=== PATIENT | male | born 1975 | race Caucasian/White ===

== ENCOUNTER 2022-06-13 17:10 | Emergency (ER) | payer BC, OTHER ==
[~2022-06-13] VITALS: Ht 188 cm; Wt 97.5 kg
[~2022-06-13 17:10] MED LIST: CYCLOBENZAPRINE5 MG PO; OXYCODONE-ACET1 EAC1 PO; PROMETHAZINE HC25 M1 PO; REGLAN10 MG PO
--- OUTSIDE RECORDS SUMMARY | 2022-06-13 17:13 | XMS ---
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 [place]na VISIT COUNT (12 MO.) 1 GINO [place] TOTAL 1 NOTE: Visits indicate total known visits. ED/UCC VISIT TRACKING (12 MO.) 06/13/2022 17:11 GINO [facility] OR TYPE: Emergency COMPLAINT: - HEADACHE INPATIENT VISIT TRACKING (12 MO.) No inpatient visits to display in this time frame [email or web address]
== END 2022-06-14 00:32 | disposition home or self-care (01) ==
LOC: ED 17:10
DX: G43.909 Migraine, unspecified, not intractable, without status migrainosus (principal); Z88.5 Allergy status to narcotic agent; Z79.899 Other long term (current) drug therapy
CPT/HCPCS: 96374; 96375; 99283-25; J0780; J1170; J1200; J1885; J7121

== ENCOUNTER 2024-03-08 09:06 | Emergency (ER) | payer BC, OTHER ==
[~2024-03-08] VITALS: Ht 188 cm; Wt 106.2 kg
[2024-03-08] MEDS ORDERED: BUPRENORPHINE HC2 MG SL (09:22)
[2024-03-08] MEDS ORDERED: ALPRAZOLAM0.5 MG PO (09:22)
[2024-03-08] MEDS ORDERED: DULOXETINE HCL60 MG PO (09:22)
[2024-03-08] MEDS ORDERED: PRAMIPEXOLE D0.75 MG PO (09:23)
[2024-03-08] MEDS ORDERED: SUMAtriptan succinate 6 MG/0.5 ML VIAL SUB-Q ONE (09:30)
[2024-03-08] MEDS ORDERED: ondansetron HCL 4 MG/2 ML VIAL IV ONE (09:30)
[2024-03-08] MEDS ORDERED: SODIUM CHLORIDE 0.9% 1,000 ML IV ONE (09:30)
[2024-03-08] MEDS ORDERED: diphenhydrAMINE HCL 50 MG/ML VIAL IV ONE ×2 (09:30→13:00)
[2024-03-08] MEDS ORDERED: KETOROLAC TROMETHAMINE 30 MG/ML VIAL IV ONE (09:30)
[2024-03-08] MEDS ORDERED: LORazepam 2 MG/ML VIAL IV ONE (11:00)
[2024-03-08] MEDS ORDERED: HYDROmorphone HCL 1 MG/ML SYR IV ONE ×2 (13:00→14:45)
[2024-03-08 15:24] VITALS: BP 134/88
== END 2024-03-08 15:24 | disposition home or self-care (01) ==
LOC: ED 09:06
DX: G43.909 Migraine, unspecified, not intractable, without status migrainosus (principal); Z79.899 Other long term (current) drug therapy; Z88.5 Allergy status to narcotic agent
CPT/HCPCS: 96374; 96375; 96376; 99283-25; J1170; J1200; J1885; J2060; J2405; J3030; J7030

== ENCOUNTER 2024-06-18 11:57 | Day surgery (SDC) | payer BC, OTHER ==
[~2024-06-18 11:57] MED LIST changes: +ALPRAZOLAM0.5 MG PO; +BUPRENORPHINE HC2 MG SL; +CEFAZOLIN SODIUM 2 GM/20 ML SYR IV SCH; +CLARITIN10 MG PO; +CYMBALTA30 MG PO; +DULOXETINE HCL60 MG PO; +IBLOOD GLUCOSE TEST STRIP 1 EA TEST VI PRN; +LACTATED RINGER'S 1,000 ML IV SCH; +LIDOCAINE HCL 1% 5 ML SDV INJ ONE; +MECLIZINE HCL25 MG PO; +MIDAZOLAM HCL 5 MG/5 ML VIAL IV PRN; +PRAMIPEXOLE D0.75 MG PO; +SUDAFED 12 HOU120 MG PO; +SYNTHROID88 MCG PO; +ZYRTEC10 M3 PO; +fentaNYL citrate 100 MCG/2 ML VIAL IV PRN
[2024-06-18 12:36] VITALS: BP 150/94
[2024-06-18] MEDS ORDERED: NIGHTTIME COLD PO (12:53)
[2024-06-18] MEDS ORDERED: EXCEDRIN MIGRA1 EAC2 PO (12:54)
[2024-06-18 13:20] VITALS: BP 129/90
[2024-06-18] MEDS ORDERED: MIDAZOLAM HCL 5 MG/5 ML VIAL ONE (14:10)
[2024-06-18] MEDS ORDERED: fentaNYL citrate 100 MCG/2 ML VIAL ONE (14:10)
[2024-06-18] MEDS ORDERED: MIDAZOLAM HCL 2 MG/2 ML VIAL ONE ×2 (15:00→15:10)
--- NOTE | 2024-06-18 15:40 | NUR ---
06/18/24 1540 Ebenezer Stewart 1534: PT ARRIVED TO PACU VIA STRETCHER. PT ALERT AND ORIENTED. PT SITTING UP IN BED TALKING. PT ON RA AT THIS TIME.
[2024-06-18 15:47] VITALS: BP 132/98
--- NOTE | 2024-06-20 12:25 | OR ---
[facility] [address], [place] [address] Signed DATE OF OPERATION: 06/18/2024 SURGEON: Francisco Ervin MD PREOPERATIVE DIAGNOSIS: Colon screening. POSTOPERATIVE DIAGNOSIS: Polyps x1, sigmoid. PROCEDURE: Total colonoscopy to cecum with cold snare polypectomy x1. ANESTHESIA: Intravenous sedation; fentanyl 200 mcg and Versed 14 mg. INDICATIONS: A 49-year-old white man is a patient of AKBAR Espinoza. He has been referred for screening colonoscopy. He currently has no symptoms of bleeding diarrhea or constipation. He has no family history of colon cancer. He is admitted at this time to undergo colonoscopy and understands the risk of bleeding, infection, and perforation. FINDINGS: The prep was good. Complete colonoscopy was undertaken to the cecum with full intubation of the cecum. He had a few scattered diverticula, but very few. He had one small polyp of the sigmoid, which was excised with cold snare technique. There were no other findings of note. PROCEDURE IN DETAIL: The patient was brought to the endoscopy suite and placed in lateral decubitus position, given intravenous sedation to the point of slurred speech and nystagmus. Digital rectal examination was normal. An Olympus video colonoscope was passed in the rectum and manipulated throughout the colon showing a few scattered diverticula. The scope was ultimately advanced to the cecum. The ileocecal valve and appendiceal orifice were normal. Additional sedation was given as needed. The scope was withdrawn from that point and examination throughout showed no sign of abnormality until the sigmoid where there was a flat small polyp about less than 1 cm in size. This was excised with cold snare technique. Further withdrawal of scope showed no other findings of concern. The scope was removed. The patient was Electronically Signed By: FRANCISCO ERVIN MD 06/20/24 1225 PATIENT NAME: DEISY PRINGLE OPERATIVE REPORT DATE OF : 79 REPORT #: [id number] PHYSICIAN: FRANCISCO ERVIN MD PCP: MAAME APPLE PA-C REPORT IS CONFIDENTIAL AND NOT TO BE RELEASED WITHOUT AUTHORIZATION [facility] [address], [place] [address] Signed taken to the recovery room in good condition. CONCLUDING DIAGNOSIS: Polyps x1 and minimal diverticula. PLAN: Recommend repeat colonoscopy in 7-10 years based on current recommendations, sooner if symptoms should occur. We would recommend high-fiber diet as well. He will return to the ongoing care of AKBAR Espinoza. MD CYNTHIA Borges/NICHO /[id number] cc: Maame Apple PA-C Copies: MAAME APPLE PA-C ~ Electronically Signed By: FRANCISCO ERVIN MD 06/20/24 1225 PATIENT NAME: DEISY PRINGLE OPERATIVE REPORT DATE OF : 79 REPORT #: [id number] PHYSICIAN: FRANCISCO ERVIN MD PCP: MAAME APPLE PA-C REPORT IS CONFIDENTIAL AND NOT TO BE RELEASED WITHOUT AUTHORIZATION
--- NOTE | 2024-06-23 14:14 | PATH ---
[facility] [address] [facility] [place], [place] [address] Signed SPECIMEN(S): A RECTOSIGMOID POLYP SPECIMEN SOURCE: A. RECTOSIGMOID POLYP CLINICAL HISTORY: Initial screening colonoscopy FINAL PATHOLOGIC DIAGNOSIS: Rectosigmoid colon polyp: - Sessile serrated adenoma. - No dysplasia or malignancy identified. SHAHZAD MICROSCOPIC EXAMINATION: Histologic sections of all submitted blocks are examined by light microscopy. These findings, together with the gross examination, support the pathologic diagnosis. GROSS DESCRIPTION: The specimen, labeled and designated "Hollis, rectosigmoid polyp," is received in formalin and consists of one jorgensen soft tissue fragment, 0.3 cm. Entirely submitted in (A1). VB (under the direct supervision of a pathologist) The Gross Description was prepared using a voice recognition system. The report was reviewed for accuracy; however, sound-alike word errors, addition and/or deletions may occur. If there is any question about this report, please contact Client Services. ADDITIONAL NOTES: Immunohistochemical and/or in situ hybridization studies if performed in this case included appropriate positive controls that reacted as expected. This test was developed and its performance characteristics determined by [facility]. It has not been cleared or approved by the U.S. Food and Drug Administration. The FDA has determined that such clearance or approval is not necessary. This test is used for clinical purposes. It should not be regarded as investigational or for research. [facility] is certified under the Clinical Laboratory Improvement Amendments of 1988 (CLIA) as qualified to perform high complexity clinical laboratory testing. PATIENT NAME: DEISY PRINGLE PATHOLOGY DATE OF : 79 REPORT #: [id number] PHYSICIAN: ANTHONY VERDUZCO PCP: SANTIAGO ROGERS PA-C REPORT IS CONFIDENTIAL AND NOT TO BE RELEASED WITHOUT AUTHORIZATION [address] [address] Signed PERFORMING LABORATORY: Technical component was performed by [facility], [address] [place] [address] (CLIA# [id number]). Professional interpretation was performed by [facility], [address] [place] [id number] (CLIA#: [id number]). Diagnostician: Jay Ortega MD Pathologist Electronically Signed 06/23/2024 Copies: ~ PATIENT NAME: DEISY PRINGLE PATHOLOGY DATE OF : 79 REPORT #: [id number] PHYSICIAN: ANTHONY VERDUZCO PCP: SANTIAGO ROGERS PA-C REPORT IS CONFIDENTIAL AND NOT TO BE RELEASED WITHOUT AUTHORIZATION
== END 2024-06-18 16:00 | disposition home or self-care (01) ==
LOC: OPS 11:57 → DS 11:58 → OPS 13:45
PROVIDERS: ATTEND Surgery
PROC: 0DBN8ZZ Excision of Sigmoid Colon, Via Natural or Artificial Opening Endoscopic (ICD-10-PCS; principal; 2024-06-18 13:45)
DX: Z12.11 Encounter for screening for malignant neoplasm of colon (principal); D12.7 Benign neoplasm of rectosigmoid junction; K57.30 Diverticulosis of large intestine without perforation or abscess without bleeding; E03.9 Hypothyroidism, unspecified; K21.9 Gastro-esophageal reflux disease without esophagitis; Z88.5 Allergy status to narcotic agent; Z79.890 Hormone replacement therapy; Z79.899 Other long term (current) drug therapy; Z86.16 Personal history of COVID-19
CPT/HCPCS: 99153; G0500; J0690; J2250; J3010; J7121

== ENCOUNTER 2024-10-20 09:00 | Emergency (ER) | payer BC, OTHER ==
[~2024-10-20] VITALS: Ht 241.3 cm; Wt 109.7 kg
[~2024-10-20 09:00] MED LIST changes: -CEFAZOLIN SODIUM 2 GM/20 ML SYR IV SCH; +EXCEDRIN MIGRA1 EAC2 PO; -IBLOOD GLUCOSE TEST STRIP 1 EA TEST VI PRN; -LACTATED RINGER'S 1,000 ML IV SCH; -LIDOCAINE HCL 1% 5 ML SDV INJ ONE; -MIDAZOLAM HCL 5 MG/5 ML VIAL IV PRN; +NIGHTTIME COLD PO; -fentaNYL citrate 100 MCG/2 ML VIAL IV PRN
[2024-10-20] MEDS ORDERED: diphenhydrAMINE HCL 50 MG/ML VIAL IV ONE (09:15)
[2024-10-20] MEDS ORDERED: PROCHLORPERAZINE EDISYLATE 10 MG/2 ML VIAL IV ONE (09:15)
[2024-10-20] MEDS ORDERED: SODIUM CHLORIDE 0.9% 1,000 ML IV PRN (09:15)
[2024-10-20 09:41] LABS: BASOPHILS 0.5 % (0-2); EOSINOPHILS 2.4 % (0-6); HEMATOCRIT 43.3 % (35.0-50.0); LYMPHOCYTES 28.2 % (24-44); MCH 28.5 (27-36); MCHC 34.6 g/dl (30-36); MCV 82.3 fl (81-99); MONOCYTES 11.3 % (0-12); NEUTROPHILS 57.6 % (39-80); PLATELET COUNT 311 K/uL (140-440); RBC 5.26 M/ul (4.3-5.7); RDW 14.4 (10.5-15.0)
[2024-10-20 09:56] LABS: ALBUMIN/GLOBULIN RATIO 1.08 (1.1-2.4); ANION GAP 15.5 (7-21); BILIRUBIN, TOTAL 0.5 mg/dL (0.2-1.0); BUN/CREATININE RATIO 5.69 (6.0-28.6); CALCIUM 9.2 mg/dL (8.5-10.1); CREATININE, SERUM 1.23 mg/dL (0.70-1.30); POTASSIUM 3.5 mmol/L (3.5-5.1); PROTEIN, TOTAL 7.7 g/dL (6.4-8.2)
[2024-10-20 11:05] VITALS: BP 116/100
== END 2024-10-20 11:06 | disposition home or self-care (01) ==
LOC: ED 09:00
PROVIDERS: Emergency Medicine
DX: G43.909 Migraine, unspecified, not intractable, without status migrainosus (principal); E03.9 Hypothyroidism, unspecified; Z88.5 Allergy status to narcotic agent; Z79.890 Hormone replacement therapy; Z79.82 Long term (current) use of aspirin; Z79.899 Other long term (current) drug therapy
CPT/HCPCS: 36415; 80053; 85025; 96361; 96374; 96375; 99283-25; J0780; J1200; J7030